=== PATIENT | female | born 1985 | race Caucasian/White ===

== ENCOUNTER 2019-01-25 18:15 | Emergency (ER) | payer MEDICAID, OTHER ==
[~2019-01-25] VITALS: Ht 157.5 cm; Wt 67.4 kg
[~2019-01-25 18:15] MED LIST: BACTDS PO; PHEN-538 PO
[2019-01-25 18:25] VITALS: BP 139/83; PULSE 91; RESP 19; Ht 157.5 cm; Wt 67.4 kg
--- NOTE | 2019-01-25 20:13 | ERD ---
ER Documentation Chief Complaint Chief Complaint on/off palpitations since Sat; painful belly button bump, too HPI 33-year-old female, presents to the emergency department, complaining of 3 days with intermittent episodes of palpitations described as a racing heart. She denies chest pain or shortness of breath, no dizziness, no blurred vision, no distal weakness, numbness or tingling. ROS All systems reviewed and are negative except as per history of present illness. Medications Home Meds Active Scripts Lorazepam* (Ativan*) 0.5 Mg Tablet, 0.5 MG PO Q8H PRN for ANXIETY, #10 TAB Prov:MELONY SERNA MD 01/25/19 Phenazopyridine Hcl* (Pyridium*) 200 Mg Tab, 200 MG PO TID PRN for URINARY PAIN, #6 TAB Prov:LAYLA GUNN MD 02/25/16 Sulfamethoxazole-Trimethoprim* (Bactrim* DS) 800-160 Mg Tab, 1 TAB PO BID for 7 Days, TAB Prov:LAYLA GUNN MD 02/25/16 Allergies Allergies: Coded Allergies: No Known Allergy (Verified , 02/25/16) PMhx/Soc History of Surgery: No Anesthesia Reaction: No Hx Neurological Disorder: No Hx Respiratory Disorders: No Hx Cardiac Disorders: No Hx Psychiatric Problems: No Hx Miscellaneous Medical Probl: Yes (IUP) Hx Alcohol Use: No Hx Substance Use: No Hx Tobacco Use: No Smoking Status: Never smoker FmHx Family History: No diabetes, No coronary disease Physical Exam Vitals Vital Signs Date Temp Pulse Resp B/P (MAP) Pulse Ox O2 O2 Flow FiO2 Time Delivery Rate 01/25/19 98.9 91 19 139/83 100 18:25 (101) Physical Exam Const: No acute distress Head: Atraumatic Eyes: Normal Conjunctiva ENT: Normal External Ears, Nose and Mouth. Neck: Full range of motion. No meningismus. Resp: Clear to auscultation bilaterally Cardio: Regular rate and rhythm, no murmurs Abd: Soft, non tender, non distended. Normal bowel sounds Skin: No petechiae or rashes Back: No midline or flank tenderness Ext: No cyanosis, or edema Neur: Awake and alert Psych: Normal Mood and Affect Result Diagram: 01/25/19202601/25/192026 Results 24 hrs Laboratory Tests Test 01/25/19 20:27 White Blood Count 10.2 10^3/ul Red Blood Count 4.55 10^6/ul Hemoglobin 12.6 g/dl Hematocrit 38.3 % Mean Corpuscular Volume 84.2 fl Mean Corpuscular Hemoglobin 27.7 pg Mean Corpuscular Hemoglobin Concent 32.9 g/dl Red Cell Distribution Width 12.3 % Platelet Count 272 10^3/UL Mean Platelet Volume 9.3 fl Immature Granulocytes % 0.200 % Neutrophils % 69.3 % Lymphocytes % 23.7 % Monocytes % 5.2 % Eosinophils % 1.2 % Basophils % 0.4 % Nucleated Red Blood Cells % 0.0 /100WBC Immature Granulocytes # 0.020 10^3/ul Neutrophils # 7.1 10^3/ul Lymphocytes # 2.4 10^3/ul Monocytes # 0.5 10^3/ul Eosinophils # 0.1 10^3/ul Basophils # 0.0 10^3/ul Nucleated Red Blood Cells # 0.0 10^3/ul Urine Color YELLOW Urine Clarity CLEAR Urine pH 8.0 Urine Specific [place] 1.011 Urine Ketones NEGATIVE mg/dL Urine Nitrite NEGATIVE mg/dL Urine Bilirubin NEGATIVE mg/dL Urine Urobilinogen 1+ mg/dL Urine Leukocyte Esterase NEGATIVE Yoshi/ul Urine Microscopic RBC 4 /HPF Urine Microscopic WBC 2 /HPF Urine Squamous Epithelial Cells FEW /HPF Urine Bacteria FEW /HPF Urine Hemoglobin 1+ mg/dL Urine Glucose NEGATIVE mg/dL Urine Total Protein NEGATIVE mg/dl Urine Test NEGATIVE Sodium Level 140 mmol/L Potassium Level 3.8 mmol/L Chloride Level 104 mmol/L Carbon Dioxide Level 30 mmol/L Anion Gap 6 Blood Urea Nitrogen 10 mg/dl Creatinine 0.51 mg/dl Est Glomerular Filtrat Rate mL/min > 60 mL/min Glucose Level 93 mg/dl Calcium Level 9.7 mg/dl Thyroid Stimulating Hormone (TSH) 1.070 MIU/L Current Medications Medications Dose Sig/Jarad Start Time Status Last (Trade) Ordered Route PRN Stop Time Admin Dose Reason Admin Lorazepam 0.5 mg ONCE ONCE 01/25/19 DC 01/25/19 (Ativan) PO 20:30 20:45 01/25/19 20:31 DIAGNOSTIC IMAGING REPORT Patient: WILLA NIXON : 1985 Age: 33 Sex: F MR #: [id number] [facility] #: [id number] DOS: 01/25/192025 Ordering MD: MELONY SERNA MD Location: FTE Room/Bed: PROCEDURE: XR chest. CLINICAL INDICATION: Chest pain TECHNIQUE: Portable AP view of the chest was obtained. COMPARISON: CR CHEST 03/23/2014 FINDINGS: Cardiomediastinal silhouette is normal. There is no pneumothorax or pleural effusion. There is no focal pulmonic consolidation. IMPRESSION: 1. No acute pulmonary abnormality. EKG read by me: Rate/Rhythm: Regular rate and rhythm at a rate of 73 Intervals: Normal No acute ST changes. No T wave inversion Impression: No evidence of acute ischemia or arrhythmia Procedures/MDM Patient presents complaining of one episode today of chest pain, palpitations, shortness of breath and perioral paresthesias. Vital signs stable, Physical exam unremarkable, neurovascular exam intact. Differential diagnosis include but not limited to: Depression, anxiety, migraine, thyroid disease, electrolyte imbalance. Low suspicion for acute coronary event, aortic dissection, CVA. Pertinent Data: 12 Lead ECG: Sinus rhythm, no ST changes, normal T wave, normal intervals Physical examination and clinical presentation consistent most likely with anxiety. During the ED course the patient remained stable, no new complaints. The patient received treatment with lorazepam presenting overall improvement of the symptoms. Results and clinical impression discussed with patient who agrees with management. The patient is stable to be treated outpatient and will be discharged home with a Rx for lorazepam, some side effects of prescribed medications (headache, rash, nausea, vomiting, diarrhea, drowsiness, habituation, bleeding, hypertension, interactions with other medications) were reviewed. The patient was instructed to follow up with the primary care provider in the next 48h. If symptoms persist, worsen or new symptoms develop, then patient should return to the ED immediately. Instructions explained and given directly by me to the patient with acknowledgment and demonstrated understanding. Disclaimer: Inadvertent spelling and grammatical errors are likely due to EHR/dictation software use and do not reflect on the overall quality of patient care. Also, please note that the electronic time recorded on this note does not necessarily reflect the actual time of the patient encounter. Departure Diagnosis: Primary Impression: Palpitations Additional Impression: Anxiety Condition: Stable Additional Instructions: Thank you very much for allowing us to participate in your care. Your health and safety is our top priority at [facility]. The evaluation in the emergency department has been done to rule out an acute emergency, therefore, chronic conditions like malignancy or other diseases have not been evaluated; therefore, you need to follow up with a primary care provider in the next 48h. If symptoms persist, worsen or new symptoms develop, then patient should return to the ED immediately. Call your primary care doctor TOMORROW for an appointment during the next 2-4 days and bring all the information provided. Have prescriptions filled and follow precisely the directions on the label. If the symptoms get worse and your provider is unavailable, return to the Emergency Department immediately. MELONY SERNA MD January 25, 2019 20:13
[2019-01-25] MEDS ORDERED: LORAZEPAM 0.5 MG TAB PO ONE (20:30)
[2019-01-25] MEDS ORDERED: LORA-441 PO (21:53)
== END 2019-01-25 22:02 | disposition home or self-care (01) ==
LOC: FTE 18:15
DX: R00.2 Palpitations (principal); F41.9 Anxiety disorder, unspecified
CPT/HCPCS: 36415; 71045; 80048; 81001; 84443; 84703; 85025; Z7502; Z7610

== ENCOUNTER 2019-04-13 17:16 | Emergency (ER) | payer OTHER ==
[~2019-04-13] VITALS: Ht 157.5 cm; Wt 68.2 kg
[~2019-04-13 17:16] MED LIST changes: +AMOX1TAB10 PO; +AZIT250T PO; +IBUP-1542 PO; +LORA-441 PO
[2019-04-13 17:27] VITALS: Ht 157.5 cm; Wt 68.2 kg
--- NOTE | 2019-04-13 18:02 | ERD ---
ER Documentation Chief Complaint Chief Complaint cough, fever , shortness of breath HPI The patient is a 34-year-old female, presenting to the ER because of cough, fever, dyspnea for the last couple days, worse today. She saw her physician 2 days ago, treated her with ibuprofen and cough medicine. He denies syncope, near syncope, neck pain, chest pain, complains of dyspnea, denies abdominal pain, vomiting, dysuria, diarrhea. She does not smoke nor drink Past medical/surgical history: None ROS All systems reviewed and are negative except as per history of present illness. Medications Home Meds Active Scripts Ibuprofen* (Motrin*) 600 Mg Tab, 600 MG PO Q6H PRN for PAIN, #20 TAB Prov:LAYLA GUNN MD 04/13/19 Azithromycin* (Zithromax*) 250 Mg Tablet, 250 MG PO .ZPACK DIRECTED, #6 TAB TAKE 500 MG (2 TABS) THE FIRST DAY THEN 250 MG (1 TAB) DAYS 2-5 Prov:LAYLA GUNN MD 04/13/19 Amoxicillin/Potassium Clav (Amox-Clav 875-125 mg Tablet) 875-125 mg Tab, 1 TAB PO BID for 10 Days, #20 TAB Prov:LAYLA GUNN MD 04/13/19 Lorazepam* (Ativan*) 0.5 Mg Tablet, 0.5 MG PO Q8H PRN for ANXIETY, #10 TAB Prov:MELONY SERNA MD 01/25/19 Phenazopyridine Hcl* (Pyridium*) 200 Mg Tab, 200 MG PO TID PRN for URINARY PAIN, #6 TAB Prov:LAYLA GUNN MD 02/25/16 Sulfamethoxazole-Trimethoprim* (Bactrim* DS) 800-160 Mg Tab, 1 TAB PO BID for 7 Days, TAB Prov:LAYLA GUNN MD 02/25/16 Allergies Allergies: Coded Allergies: No Known Allergy (Verified , 02/25/16) PMhx/Soc Medical and Surgical Hx: pt denies Surgical Hx History of Surgery: No Anesthesia Reaction: No Hx Neurological Disorder: No Hx Respiratory Disorders: No Hx Cardiac Disorders: No Hx Psychiatric Problems: No Hx Miscellaneous Medical Probl: Yes (IUP) Hx Alcohol Use: No Hx Substance Use: No Hx Tobacco Use: No Smoking Status: Never smoker Physical Exam Vitals Vital Signs Date Temp Pulse Resp B/P (MAP) Pulse Ox O2 O2 Flow FiO2 Time Delivery Rate 04/13/19 88 20 98 21 20:15 04/13/19 99.3 88 18 110/65 95 Room Air 19:08 (80) 04/13/19 99.6 19:04 04/13/19 101.2 102 25 130/70 98 17:27 (90) Physical Exam Const: No acute distress. Head: Atraumatic. Eyes: Normal Conjunctiva. ENT: Normal External Ears, Nose and Mouth. Neck: Full range of motion. No meningismus. Resp: Tachypneic, minimal bilateral expiratory wheezes Cardio: Regular rate and rhythm. Abd: Soft, non distended, normal bowel sounds, non tender. Skin: No petechiae or rashes. Back: No midline or flank tenderness. Ext: No cyanosis, or edema. Neur: Awake and alert. No focal deficit Psych: Normal Mood and Affect. Result Diagram: 04/13/19 1840 04/13/19 184 Results 24 hrs Laboratory Tests Test 04/13/19 18:39 04/13/19 18:40 04/13/19 19:08 Bedside Urine pH (LAB) 7.0 Bedside Urine Protein (LAB) Negative Bedside Urine Glucose (UA) Negative Bedside Urine Ketones (LAB) Negative Bedside Urine Blood 2+ Bedside Urine Nitrite (LAB) Negative Bedside Urine Leukocyte Esterase (L Negative POC Beta HCG, Qualitative NEGATIVE White Blood Count 5.7 10^3/ul Red Blood Count 3.96 10^6/ul Hemoglobin 11.0 g/dl Hematocrit 33.1 % Mean Corpuscular Volume 83.6 fl Mean Corpuscular Hemoglobin 27.8 pg Mean Corpuscular Hemoglobin Concent 33.2 g/dl Red Cell Distribution Width 12.1 % Platelet Count 189 10^3/UL Mean Platelet Volume 9.1 fl Immature Granulocytes % 0.200 % Neutrophils % 75.3 % Lymphocytes % 13.4 % Monocytes % 10.2 % Eosinophils % 0.5 % Basophils % 0.4 % Nucleated Red Blood Cells % 0.0 /100WBC Immature Granulocytes # 0.010 10^3/ul Neutrophils # 4.3 10^3/ul Lymphocytes # 0.8 10^3/ul Monocytes # 0.6 10^3/ul Eosinophils # 0.0 10^3/ul Basophils # 0.0 10^3/ul Nucleated Red Blood Cells # 0.0 10^3/ul Prothrombin Time 13.6 Sec Prothrombin Time Ratio 1.1 INR International Normalized Ratio 1.03 Activated Partial Thromboplast Time 38.1 Sec Sodium Level 143 mmol/L Potassium Level 3.4 mmol/L Chloride Level 107 mmol/L Carbon Dioxide Level 27 mmol/L Anion Gap 9 Blood Urea Nitrogen 8 mg/dl Creatinine 0.47 mg/dl Est Glomerular Filtrat Rate mL/min > 60 mL/min Glucose Level 97 mg/dl Lactic Acid Level 1.0 mmol/L Calcium Level 8.2 mg/dl Total Bilirubin 0.6 mg/dl Direct Bilirubin 0.00 mg/dl Indirect Bilirubin 0.6 mg/dl Aspartate Amino Transf (AST/SGOT) 30 IU/L Alanine Aminotransferase (ALT/SGPT) 28 IU/L Alkaline Phosphatase 59 IU/L Total Protein 7.3 g/dl Albumin 3.8 g/dl Globulin 3.50 g/dl Albumin/Globulin Ratio 1.08 POC Venous Lactate 1.0 mmol/L Current Medications Medications Dose Sig/Jarad Start Time Status Last (Trade) Ordered Route PRN Stop Time Admin Dose Reason Admin Sodium 2,050 ml BOLUS OVER 2 04/13/19 DC 04/13/19 Chloride HOURS STAT 18:08 04/13/19 19:01 (NS) IV* 18:10 650 mg ONCE ONCE 04/13/19 DC 04/13/19 Acetaminophen PO 18:30 04/13/19 19:04 (Tylenol 18:31 Tab) Ceftriaxone 50 ml @ ONCE ONCE 04/13/19 DC 04/13/19 Sodium 100 mls/hr IVPB 19:30 04/13/19 19:22 19:59 Azithromycin 250 ml @ ONCE ONCE 04/13/19 DC 04/13/19 250 mls/hr IVPB 19:30 04/13/19 19:27 20:29 Potassium 40 meq ONCE STAT 04/13/19 DC 04/13/19 Chloride PO 19:41 04/13/19 19:48 (Klor-Con 20) 19:45 1.25 mg ONCE ONCE 04/13/19 DC 04/13/19 Levalbuterol HHN 20:00 04/13/19 20:15 (Xopenex 20:01 Neb) Ipratropium 0.5 mg ONCE ONCE 04/13/19 DC 04/13/19 [place] HHN 20:00 04/13/19 20:15 (Atrovent 20:01 0.02% (Neb)) Procedures/[place] [address] Radiology Main Line: [phone] DIAGNOSTIC IMAGING REPORT Patient: WILLA NIXON : 1985 Age: 34 Sex: F MR #: [id number] DOS: 04/13/19 1808 Ordering MD: LAYLA GUNN MD Location: FTE Room/Bed: PROCEDURE: XR Chest AP portable CLINICAL INDICATION: Sepsis TECHNIQUE: An AP portable radiograph of the chest was submitted. COMPARISON: 01/25/2019 FINDINGS: Support Hardware: None Cardiovascular: The cardiovascular silhouette appears unremarkable. Lung [place]: Air space opacification has developed within the left lower lung zone, likely within the lingular segment of the left upper lobe. Pleural Spaces: No pneumothorax or pleural effusion is identified. Osseous Structures: The osseous structures appear intact. Soft Tissues: Unremarkable IMPRESSION: 1. Development of air space opacification within the left lower lung zone, likely within the lingular segment of the left lower lobe. No effusion is evident. 2. The cardiovascular silhouette is stable and unremarkable. Physician Earnestine Date Time Electronically viewed and signed by Physician Earnestine on 04/13/2019 18:42 RH/ CC: LAYLA GUNN MD [id number] MEDICAL MAKING DECISION: The patient is a 34-year-old female, presenting with acute pneumonia, acute hypokalemia She was treated with Tylenol 650 mg p.o. for fever, normosaline 30 mm/kg IV for acute dehydration, Rocephin IV and Zithromax IV for acute pneumonia, potassium chloride 40 mEq p.o. for acute hypokalemia, Xopenex 1.25 mg and Atrovent 0.5 mg for wheezing with good response. The differential diagnoses considered include but are not limited to asthma, COPD, pneumonia, pulmonary embolus, pleural effusion, congestive heart failure. Departure Diagnosis: Primary Impression: PNA (pneumonia) Additional Impressions: Hypokalemia Anemia Condition: Good Comments She was discharged with Augmentin and Zithromax and Motrin I discussed the findings with the patient. I advised the patient to follow-up with the primary physician in about 1-2 days, sooner if needed and return if any concern. Disclaimer: Inadvertent spelling and grammatical errors are likely due to EHR/dictation software use and do not reflect on the overall quality of patient care. Also, please note that the electronic time recorded on this note does not necessarily reflect the actual time of the patient encounter. LAYLA GUNN MD Apr 13, 2019 18:02
[2019-04-13] MEDS ORDERED: SODIUM CHLORIDE 0.9% 1L BAG IV* STA (18:08)
[2019-04-13] MEDS ORDERED: ACETAMINOPHEN 325 MG TAB PO ONE (18:30)
[2019-04-13] MEDS ORDERED: CEFTRIAXONE 1 GM/50 ML (PMX) 50 ML IVPB ONE (19:30)
[2019-04-13] MEDS ORDERED: AZITHROMYCIN 500MG/NS (PMX) 250 ML IVPB ONE (19:30)
[2019-04-13] MEDS ORDERED: POTASSIUM CHLORIDE (SR) 20 MEQ TAB PO STA (19:41)
[2019-04-13] MEDS ORDERED: LEVALBUTEROL (NEB) 1.25 MG/0.5 ML AMP HHN ONE (20:00)
[2019-04-13] MEDS ORDERED: IPRATROPIUM (NEB) 0.5 MG/2.5 ML AMP HHN ONE (20:00)
[2019-04-13 21:31] VITALS: BP 103/62; PULSE 74; RESP 18
== END 2019-04-13 22:15 | disposition home or self-care (01) ==
LOC: FTE 17:16
DX: J18.9 Pneumonia, unspecified organism (principal); E87.6 Hypokalemia; D64.9 Anemia, unspecified
CPT/HCPCS: 36415; 71045; 80053; 81003; 81025; 83605; 85025; 85610; 85730; 87040; 87086; 93005; 94664; 96365; 96366; 96368; J0456; J0696; J7030; Z7502; Z7610

== ENCOUNTER 2019-05-22 21:35 | Emergency (ER) | payer OTHER ==
[~2019-05-22] VITALS: Ht 162.6 cm; Wt 67.0 kg
[~2019-05-22 21:35] MED LIST changes: +ACET500C5 PO; +BEN25 PO; +CEPH-443 PO; +HYDR-4011 PO; +HYDR50TA15 PO; +NAPR-985 PO; +OMEP20CA17 PO; +SUMA25TA34 PO
[2019-05-22 22:31] VITALS: Ht 162.6 cm; Wt 67.0 kg
[2019-05-22] MEDS ORDERED: ACETAMINOPHEN 325 MG TAB PO STA (22:40)
[2019-05-22] MEDS ORDERED: CEFTRIAXONE 1 GM/50 ML (PMX) 50 ML IVPB STA (22:40)
[2019-05-22] MEDS ORDERED: SODIUM CHLORIDE 0.9% 1L BAG IV* STA (22:40)
[2019-05-23 01:45] VITALS: BP 115/76; PULSE 107; RESP 16
[2019-05-23] MEDS ORDERED: KETOROLAC 30 MG INJ IV STA (02:52)
== END 2019-05-23 03:13 | disposition home or self-care (01) ==
LOC: E/R 21:35
DX: R10.9 Unspecified abdominal pain (principal); R50.9 Fever, unspecified
CPT/HCPCS: 36415; 71045; 74176; 80053; 81001; 83605; 84484; 84703; 85025; 85610; 85730; 87040; 87086; 96374; 96375; J0696; J1885; J7030; Z7502; Z7610; 93005